=== PATIENT | female | born 2000 | race Caucasian/White ===

== ENCOUNTER 2023-09-07 20:36 | Emergency (ER) | payer SELFPAY ==
[~2023-09-07] VITALS: Ht 152.4 cm; Wt 65.1 kg
[2023-09-07 21:27] VITALS: O2SAT 99
[2023-09-07 23:11] LABS: BASOPHILS % 0.6 % (0.0-2.0); EOSINOPHILS % 1.7 % (0.0-5.0); HEMATOCRIT. 40.3 % (36.0-48.0); HEMOGLOBIN. 13.4 g/dL (12.0-16.0); MEAN CORPUSCULAR HGB CONC 33.3 g/dL (31.0-37.0); MEAN PLATELET VOLUME 8.1 fl (7.4-10.4); MONOCYTES % 7.4 % (2.0-8.0); NEUTROPHILS % 78.3 % (40.0-76.0); PLATELET 385 x1000/uL (130-400); RED BLOOD CELL COUNT 4.79 mill/uL (4.2-5.4); RED CELL DISTRIBUTION WIDTH 14.6 % (11.6-14.6); WHITE BLOOD COUNT 18.4 x1000/uL (4.5-11.0)
[2023-09-07 23:20] LABS: HCG SCREEN NEGATIVE
[2023-09-07 23:24] LABS: ALANINE AMINOTRANSFERASE 108 IU/L (10-49); ALBUMIN 5.1 g/dL (3.2-4.8); ASPARTATE AMINOTRANSFERASE 59 IU/L (<34); BILIRUBIN TOTAL 0.6 mg/dL (0.1-1.0); CALCIUM 10.2 mg/dL (8.7-10.4); CARBON DIOXIDE 25 mEq/L (21-32); CHLORIDE 103 mEq/L (98-107); CREATININE 0.7 mg/dL (0.6-1.0); GLUCOSE 99 mg/dL (70-105); POTASSIUM 3.8 mEq/L (3.5-5.1); PROTEIN TOTAL 8.7 g/dL (6.0-8.3); SODIUM 136 mEq/L (136-145); UREA NITROGEN BLOOD 10 mg/dL (9-23)
[2023-09-07 23:28] LABS: TROPONIN I HIGH SENSITIVITY < 4 ng/L (3.0-34)
[2023-09-08 03:33] LABS: CLARITY URINE CLEAR (CLEAR); COLOR URINE YELLOW (YELLOW); GLUCOSE URINE NEGATIVE (NEGATIVE); KETONES URINE NEGATIVE (NEGATIVE); LEUKOCYTE ESTERASE URINE NEGATIVE (NEGATIVE); NITRITE URINE NEGATIVE (NEGATIVE); OCCULT BLOOD URINE NEGATIVE (NEGATIVE); PH URINE 7.5 (4.5-8.0); PROTEIN URINE NEGATIVE (NEGATIVE); SPECIFIC GRAVITY URINE 1.018 (1.005-1.030); UROBILINOGEN URINE 0.2 E.U./dL (0.2-1.0)
[2023-09-08] MEDS: SODIUM CHLORIDE 0.9% 1,000 ML IV ONE (04:50)
[2023-09-08] MEDS: PREDNISONE 20MG TABLET PO ONE (04:50)
[2023-09-08] MEDS ORDERED: ALBU6.7H15 INH (05:17)
[2023-09-08] MEDS ORDERED: ACET-2708 MT (05:17)
[2023-09-08] MEDS ORDERED: MED4 MT (05:17)
[2023-09-08] MEDS ORDERED: ALBUTEROL (0.083%) 2.5MG/3ML NEB ONE (05:29)
[2023-09-08] MEDS ORDERED: IPRATROPIUM BROMIDE (0.02%) 0.5MG/2.5ML NEB ONE (05:29)
[2023-09-08 05:47] VITALS: PULSE 92; RESP 18
[2023-09-08] MEDS: ALBUTEROL (0.083%) 2.5MG/3ML NEB HHN STA (05:47)
[2023-09-08] MEDS: IPRATROPIUM BROMIDE (0.02%) 0.5MG/2.5ML NEB HHN STA (05:47)
[2023-09-08 07:37] VITALS: BP 115/78; PULSE 96; RESP 18; TEMP 98.7
== END 2023-09-08 08:08 | disposition home or self-care (01) ==
LOC: ER 20:36
DX: B34.9 Viral infection, unspecified (principal); J20.8 Acute bronchitis due to other specified organisms; F19.90 Other psychoactive substance use, unspecified, uncomplicated; Z98.890 Other specified postprocedural states; Z90.49 Acquired absence of other specified parts of digestive tract; Z20.822 Contact with and (suspected) exposure to COVID-19
CPT/HCPCS: 80053; 84703; 83880; 85025; 84484; 36415; 93005; 99285; 81003; 87804 ×2; 71045; 94640; 96360; 87426; J7512; Z7610 ×6; J7030; C1893